=== PATIENT | female | born 2000 | race Caucasian/White ===

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

== ENCOUNTER 2022-01-13 10:30 | Outpatient (RCR) | payer BC | END 2022-01-15 | disposition home or self-care (01) | LOC: WSPT | DX: G71.09 Other specified muscular dystrophies (principal) ==

== ENCOUNTER 2022-01-19 12:45 | Outpatient (RCR) | payer BC | END 2022-02-15 | disposition home or self-care (01) | LOC: WSPT | DX: G71.09 Other specified muscular dystrophies (principal) ==

== ENCOUNTER 2022-06-09 09:08 | Outpatient (CLI) | payer BC ==
[2022-06-09] VITALS (12 sets, daily range): BP systolic 102–112; BP diastolic 69–82; PULSE 68–98; TEMP 97.8
[~2022-06-09] VITALS: Ht 157.5 cm; Wt 61.3 kg
[2022-06-09 09:34] LABS: BASO % 0.2 % (0.0-2.0); EOS % 0.6 % (0.0-4.0); GRAN # 2.1 K/mm3 (1.4-6.5); GRAN % 45.3 % (42.2-75.2); HEMATOCRIT 43.7 % (35.0-45.0); LYMPH % 44.2 % (20.0-51.0); MEAN CELL VOLUME 87 fl (80.0-95.0); MEAN CORPUSCULAR HEMOGLOBIN 28 pg (26-32); MEAN CORPUSCULAR HGB CONC 32 g/dl (33.0-37.0); MEAN PLATELET VOLUME 10.8 fl (7.4-10.4); MONO # 0.4 K/mm3 (0.1-0.6); MONO % 9.5 % (1.7-9.3); PLATELET COUNT 209 K/mm3 (130-400); RED BLOOD COUNT 5.01 M/mm3 (4.10-5.30); REDCELL DISTRIBUTION WIDTH-CV 12.1 % (11.5-14.5)
[2022-06-09 09:58] LABS: ALBUMIN 3.8 gm/dL (3.5-5.0); BILIRUBIN,TOTAL 0.6 mg/dL (0.2-1.2); CALCIUM 9.2 mg/dL (8.4-10.2); CREATININE, serum 0.52 mg/dL (0.57-1.11); POTASSIUM 3.9 mmol/L (3.5-4.5); TOTAL PROTEIN 7.5 gm/dL (6.2-8.1)
--- NOTE | 2022-06-09 13:06 | NUR ---
Pt escorted out via wheelchair by this nurse.
== END 2022-06-09 14:26 ==
LOC: EUO 09:08
PROVIDERS: Family Medicine
DX: U07.1 COVID-19 (principal); R05.1 Acute cough
CPT/HCPCS: J7030; M0222; Q0222

== ENCOUNTER → 2024-04-03 | Outpatient (CLI) | payer BC, MEDICAID ==
--- NOTE | 2024-04-03 15:02 | NUR ---
Pt, Kyleigh Galicia, presents for an outpatient consult with 18 day old baby boy, Pop Blanc. She is also accompanied by her mother, Zahraa Taylor. Pop was born at 36 wks gestation at [facility] due to maternal complication of muscular dystrophy. Pop was seen by Dr. Marie on 03/25/24 and his weight is documented as 6# 4oz. Records indicate his weight was 6# 1oz. A referral was made to this LC as Pop was not latching, but doing well with pumping and bottle feeding thus far. Today Pop weighs 6# 12.8oz (3084 gms). His voids and stools exceed expectations. He reportedly drinks 45-60ml per bottle feeding, 8 times daily. Pt is able to express 160+ ml regularly. Initially, latch was difficult due to breast firmness, and pt's lack of knowledge in how to handle Pop and the breast to achieve a deep latch. Once the areola softens, LC able to get Pop latched. Frequent swallows noted. After initial latch on the right side, Pop had a gain of 46 gms (1.6oz). We placed him back to the same breast in the football hold and pt is able to help latch him more indepentantly. Because of pt's muscular dystrophy, LC discussed support and coordination techniques that may aid in latching and keeping baby close to breast. AFter Pop is done feeding, total weight gain was 78 gms (2.8oz). Because pt has excess milk making latch more difficult, management of fullness manual expression of milk and latching reviewed. Also advsied to do one-sided feeding and pump the other each opportunity. POC: Work on latch and as pt tolerates. Otherwise continue pumping and bottle feeding. F/U: As scheduled with physicians, this LC as pt desires. Questions invited and answered.
== END ==
LOC: LAC 03-28 16:15
DX: Z39.1 Encounter for care and examination of lactating mother (principal); Z71.89 Other specified counseling